=== PATIENT | female | born 1935 | race Caucasian/White ===

== ENCOUNTER 2017-02-16 09:01 | Inpatient (IN) | payer BC, OTHER ==
[~2017-02-16] VITALS: Ht 167.6 cm; Wt 54.3 kg
[2017-02-16 09:42] LABS: Basophils # (auto) 0 uL; CONDITION Y; Eosinophils # (auto) 0 uL; Eosinophils % (auto) 0.1 % (0.0-7.0); Hematocrit 31.4 % (36.0-46.0); Hemoglobin 10.5 g/dL (12.2-16.2); Lymphocytes # (auto) 0.4 uL; Lymphocytes % (auto) 2.5 % (10.0-50.0); Mean Corpuscular Hemoglobin 29.7 pg (28.0-32.0); Mean Corpuscular Hgb Conc. 33.4 g/dL (32.0-36.0); Mean Corpuscular Volume 88.8 fL (80.0-100.0); Mean Platelet Volume 8.3 fL (7.4-10.4); Monocytes # (auto) 1.1 uL; Neutrophils # (auto) 14.6 uL; Neutrophils % (auto) 90.4 % (37.0-80.0); Platelet Count (auto) 311 10^3/uL (140-450); Red Cell Distribution Width 16.3 % (11.6-16.0); White Blood Cell 16.1 10^3/uL (4.4-10.8)
[2017-02-16 09:57] LABS: Albumin 2.5 g/dL (3.4-5.0); Alkaline Phosphatase 86 U/L (45-117); Anion Gap 14 (5-15); Aspartate Aminotransferase 21 U/L (15-37); BUN/Creatinine Ratio 24.2; Bilirubin, Total 0.5 mg/dL (0.2-1.0); Blood Urea Nitrogen 52 mg/dL (7-18); Calcium 8.5 mg/dL (8.5-10.1); Carbon Dioxide 12 mmol/L (21-32); Chloride 110 mmol/L (98-107); GFR African American 28 mL/min; GFR Non-African American 24 mL/min; Glucose 127 mg/dL (74-106); Magnesium 2.4 mg/dL (1.6-2.6); Potassium 3.6 mmol/L (3.5-5.1); Sodium 136 mmol/L (136-145); Total Protein 7.4 g/dL (6.4-8.2)
[2017-02-16] MEDS ORDERED: SODIUM CHLORIDE 0.9% 1,000 ML IV ONE (10:35)
[2017-02-16 11:26] LABS: Urine Bilirubin Negative (Negative); Urine Color Yellow (Yellow); Urine Glucose Normal (Normal); Urine Ketone TRACE (Negative); Urine Mucus FEW (None Seen); Urine RBC 2 /hpf (0 - 4); Urine Squamous Epithelial Cell FEW /hpf (<5); Urine Urobilinogen Normal (Negative); Urine WBC Clumps PRESENT /hpf (None Seen); Urine pH 5.5 (5.0-8.0)
[2017-02-16 11:27] LABS: Urine Blood 1+ /uL (Negative); Urine Nitrite POSITIVE (Negative)
[2017-02-16] MEDS ORDERED: cefTRIAXone 1GM/50ML D5W 50 ML IV ONE ×2 (13:00→13:15)
[2017-02-16] MEDS ORDERED: cloNIDine HCL 0.1 MG TAB PO PRN (15:15)
[2017-02-16] MEDS ORDERED: VANCOMYCIN PER PHARMACY 0 MG IV SCH (15:15)
[2017-02-16] MEDS ORDERED: HYDROcodone-ACET 5/325MG TAB PO PRN (15:30)
[2017-02-16] MEDS ORDERED: ACETAMINOPHEN 325 MG TAB PO PRN (15:30)
[2017-02-16] MEDS ORDERED: TEMAZEPAM 15 MG CAP PO PRN (15:30)
[2017-02-16] MEDS ORDERED: ONDANSETRON HCL 4 MG/2 ML VIAL IV PRN (15:30)
[2017-02-16] MEDS ORDERED: LABETALOL HCL 5 MG/ML ML 20ML VIAL IV PRN (15:30)
[2017-02-16] MEDS ORDERED: DOCUSATE SOD 100 MG CAP PO PRN (15:30)
[2017-02-16] MEDS ORDERED: DEXTROSE (50%) 50ML SYRG IV PRN (15:30)
[2017-02-16] MEDS ORDERED: MORPHINE SULF INJ 2 MG/ML SYRINGE 1ML IV PRN (15:30)
[2017-02-16] MEDS ORDERED: ASPirin-EC 81 mg tab PO ONE (15:30)
[2017-02-16] MEDS: SODIUM CHLORIDE 0.9% 1,000 ML IV SCH (15:54)
[2017-02-16] MEDS ORDERED: VANCOMYCIN 1GM/250ML D5W 250 ML IV ONE (16:00)
[2017-02-16] MEDS ORDERED: VANCOMYCIN 750 MG in D5W 5% 250 ML IV ONE (16:15)
[2017-02-16] MEDS: ENOXAPARIN SOD 30 MG/0.3 ML SYRINGE SC SCH (16:45)
[2017-02-16] MEDS: FAMOTIDINE 20 MG TAB PO SCH (16:45)
[2017-02-16] MEDS: ACCU-CHEK COMFORT CURVE STRIP VI SCH ×2 (17:39→22:58)
[2017-02-16] MEDS: InsuLIN REG 1unit/0.01ml Soln (100units/ml) SC SCH ×2 (17:39→22:00)
[2017-02-16] MEDS: Boost Glucose Control 8 Ounces PO SCH (18:14)
[2017-02-16 20:15] VITALS: BP 158/84
[2017-02-16 22:00] VITALS: BP 158/84
[2017-02-16] MEDS: ATORVASTATIN 20 MG TAB PO SCH (22:18)
[2017-02-17 05:00] VITALS: BP 125/75
[2017-02-17 05:40] LABS: CONDITION Y; Hematocrit 30.4 % (36.0-46.0); Hemoglobin 10.2 g/dL (12.2-16.2); Mean Corpuscular Hemoglobin 30.2 pg (28.0-32.0); Mean Corpuscular Hgb Conc. 33.7 g/dL (32.0-36.0); Mean Corpuscular Volume 89.5 fL (80.0-100.0); Mean Platelet Volume 9.1 fL (7.4-10.4); Platelet Count (auto) 272 10^3/uL (140-450); Red Cell Distribution Width 16.2 % (11.6-16.0); SUSPECT SEE PRINTOUT
[2017-02-17 05:51] LABS: Albumin 2.1 g/dL (3.4-5.0); Calcium 8.1 mg/dL (8.5-10.1); Potassium 3.7 mmol/L (3.5-5.1)
[2017-02-17 05:52] LABS: BUN/Creatinine Ratio 25.1
[2017-02-17] MEDS: InsuLIN REG 1unit/0.01ml Soln (100units/ml) SC SCH ×4 (06:01→21:57)
[2017-02-17] MEDS: ACCU-CHEK COMFORT CURVE STRIP VI SCH ×4 (06:01→21:57)
[2017-02-17 06:06] LABS: Bilirubin, Total 0.4 mg/dL (0.2-1.0); Total Protein 6.6 g/dL (6.4-8.2)
[2017-02-17 06:17] LABS: Metamyelocytes % 0; Myelocytes % 0; Promyelocytes % 0; Reactive Lymphocytes 0
[2017-02-17 08:36] LABS: Platelet Estimate Adequate
[2017-02-17 08:37] LABS: Burr Cells FEW; Ovalocytes FEW
[2017-02-17 09:00] VITALS: BP 128/78
[2017-02-17] MEDS: Boost Glucose Control 8 Ounces PO SCH ×3 (10:20→18:19)
[2017-02-17] MEDS: MULTIPLE VITAMIN TAB PO SCH (10:21)
[2017-02-17] MEDS: cefTRIAXone 1GM/50ML D5W 50 ML IV SCH (10:21)
[2017-02-17] MEDS: ASPirin-EC 81 mg tab PO SCH (10:21)
[2017-02-17] MEDS: SODIUM CHLORIDE 0.9% 1,000 ML IV SCH ×2 (10:21→21:58)
[2017-02-17] MEDS: FAMOTIDINE 20 MG TAB PO SCH (10:21)
[2017-02-17 13:00] VITALS: BP 115/65
[2017-02-17] MEDS ORDERED: VANCOMYCIN 750 MG in D5W 5% 250 ML IV ONE (16:00)
[2017-02-17 16:22] VITALS: BP 126/74
[2017-02-17] MEDS: ENOXAPARIN SOD 30 MG/0.3 ML SYRINGE SC SCH (16:42)
[2017-02-17 17:00] VITALS: BP 140/100
[2017-02-17] MEDS: ATORVASTATIN 20 MG TAB PO SCH (21:58)
[2017-02-17 22:00] VITALS: BP 119/81
[2017-02-18 05:00] VITALS: BP 128/79
[2017-02-18] MEDS: ACCU-CHEK COMFORT CURVE STRIP VI SCH ×2 (06:31→11:30)
[2017-02-18] MEDS: InsuLIN REG 1unit/0.01ml Soln (100units/ml) SC SCH ×2 (06:31→11:30)
[2017-02-18 07:02] LABS: Basophils # (auto) 0 uL; CONDITION Y; DEFINITIVE SEE PRINTOUT; Eosinophils # (auto) 0.2 uL; Eosinophils % (auto) 1.9 % (0.0-7.0); Hematocrit 35.2 % (36.0-46.0); Hemoglobin 11.8 g/dL (12.2-16.2); Lymphocytes # (auto) 0.9 uL; Lymphocytes % (auto) 7.4 % (10.0-50.0); Mean Corpuscular Hemoglobin 30.1 pg (28.0-32.0); Mean Corpuscular Hgb Conc. 33.6 g/dL (32.0-36.0); Mean Corpuscular Volume 89.6 fL (80.0-100.0); Mean Platelet Volume 9.1 fL (7.4-10.4); Monocytes # (auto) 1.8 uL; Monocytes % (auto) 13.8 % (0.0-12.0); Neutrophils # (auto) 9.8 uL; Neutrophils % (auto) 76.9 % (37.0-80.0); Platelet Count (auto) 281 10^3/uL (140-450); Red Cell Distribution Width 16.7 % (11.6-16.0); White Blood Cell 12.8 10^3/uL (4.4-10.8)
[2017-02-18 07:45] LABS: Albumin 2.1 g/dL (3.4-5.0); BUN/Creatinine Ratio 28.8; Calcium 7.8 mg/dL (8.5-10.1); Potassium 3.5 mmol/L (3.5-5.1)
[2017-02-18 07:47] LABS: Bilirubin, Total 0.3 mg/dL (0.2-1.0); Total Protein 6.3 g/dL (6.4-8.2)
[2017-02-18] MEDS: cefTRIAXone 1GM/50ML D5W 50 ML IV SCH (09:35)
[2017-02-18] MEDS: Boost Glucose Control 8 Ounces PO SCH ×3 (09:35→18:27)
[2017-02-18] MEDS: ASPirin-EC 81 mg tab PO SCH (09:36)
[2017-02-18] MEDS: MULTIPLE VITAMIN TAB PO SCH (09:36)
[2017-02-18] MEDS: FAMOTIDINE 20 MG TAB PO SCH (09:36)
[2017-02-18 11:23] VITALS: BP 115/75
[2017-02-18 15:53] VITALS: BP 118/78
[2017-02-18] MEDS: ENOXAPARIN SOD 30 MG/0.3 ML SYRINGE SC SCH (16:00)
[2017-02-18] MEDS: ATORVASTATIN 20 MG TAB PO SCH (21:56)
[2017-02-18 22:37] VITALS: BP 140/75
[2017-02-19 05:30] VITALS: BP 145/72
[2017-02-19 06:47] LABS: Basophils # (auto) 0 uL; Basophils % (auto) 0.1 % (0.0-2.0); CONDITION Y; Eosinophils # (auto) 0.2 uL; Eosinophils % (auto) 1.7 % (0.0-7.0); Hematocrit 29.2 % (36.0-46.0); Hemoglobin 9.9 g/dL (12.2-16.2); Lymphocytes # (auto) 0.7 uL; Lymphocytes % (auto) 7.3 % (10.0-50.0); Mean Corpuscular Hemoglobin 30.3 pg (28.0-32.0); Mean Corpuscular Hgb Conc. 34.1 g/dL (32.0-36.0); Mean Corpuscular Volume 88.9 fL (80.0-100.0); Neutrophils # (auto) 7.8 uL; Neutrophils % (auto) 80.9 % (37.0-80.0); Platelet Count (auto) 271 10^3/uL (140-450); Red Cell Distribution Width 16.2 % (11.6-16.0); White Blood Cell 9.7 10^3/uL (4.4-10.8)
[2017-02-19 08:05] LABS: BUN/Creatinine Ratio 20.1; Potassium 3.6 mmol/L (3.5-5.1)
[2017-02-19 08:06] LABS: Calcium 7.6 mg/dL (8.5-10.1)
[2017-02-19 09:00] VITALS: BP 133/81
[2017-02-19] MEDS: FAMOTIDINE 20 MG TAB PO SCH (09:33)
[2017-02-19] MEDS: cefTRIAXone 1GM/50ML D5W 50 ML IV SCH (09:33)
[2017-02-19] MEDS: ASPirin-EC 81 mg tab PO SCH (09:33)
[2017-02-19] MEDS: Boost Glucose Control 8 Ounces PO SCH ×2 (09:33→13:21)
[2017-02-19] MEDS: MULTIPLE VITAMIN TAB PO SCH (09:33)
[2017-02-19 13:20] VITALS: BP 129/61
[2017-02-19] MEDS ORDERED: LEVOFLOXACIN 250 MG TAB PO ONE (14:45)
[2017-02-19] MEDS: ENOXAPARIN SOD 30 MG/0.3 ML SYRINGE SC SCH (16:00)
[2017-02-20] MEDS ORDERED: LEVOFLOXACIN 250 MG TAB PO SCH (10:00)
== END 2017-02-19 16:27 | disposition home or self-care (01) | DRG 871 ==
LOC: EDBD 09:01 → ER 09:01 → OVERFLOW 09:02 → CENTRAL 20:10
PROVIDERS: ADMIT Internal Medicine; ATTEND Internal Medicine
DX: A41.9 Sepsis, unspecified organism (principal); G92 Toxic encephalopathy; E43 Unspecified severe protein-calorie malnutrition; N39.0 Urinary tract infection, site not specified; N18.4 Chronic kidney disease, stage 4 (severe); N17.9 Acute kidney failure, unspecified; Z68.1 Body mass index [BMI] 19.9 or less, adult; E11.21 Type 2 diabetes mellitus with diabetic nephropathy; E03.9 Hypothyroidism, unspecified; D63.8 Anemia in other chronic diseases classified elsewhere; I25.10 Atherosclerotic heart disease of native coronary artery without angina pectoris; Z95.1 Presence of aortocoronary bypass graft; E05.90 Thyrotoxicosis, unspecified without thyrotoxic crisis or storm; E11.22 Type 2 diabetes mellitus with diabetic chronic kidney disease; E11.65 Type 2 diabetes mellitus with hyperglycemia; E86.0 Dehydration; I12.9 Hypertensive chronic kidney disease with stage 1 through stage 4 chronic kidney disease, or unspecified chronic kidney disease; M32.9 Systemic lupus erythematosus, unspecified; Z90.710 Acquired absence of both cervix and uterus; Z88.2 Allergy status to sulfonamides
CPT/HCPCS: 36415; 70450; 71020; 80048; 80053; 80202; 80320; 81001; 82962; 83036; 83605; 83690; 83735; 84443; 84484; 85007; 85025; 85027; 87040; 87086; 87088; 87186; 92610; 93005; 93306; 93886; 94761; 96361; 96365; 96367; J0696; J7060

== ENCOUNTER 2021-02-17 11:36 | Inpatient (IN) | payer BC ==
[~2021-02-17] VITALS: Ht 167.6 cm; Wt 51.4 kg
[2021-02-17] MEDS ORDERED: ONDANSETRON HCL 4 MG/2 ML VIAL IV ONE (12:15)
[2021-02-17] MEDS ORDERED: SODIUM CHLORIDE 0.9% 1,000 ML IVB ONE (12:15)
[2021-02-17 13:40] LABS: Basophils # (auto) 0 10 ^3/uL (0-0.2); Basophils % (auto) 0.2 % (0.0-2.0); Eosinophils # (auto) 0 10 ^3/uL (0-0.8); Eosinophils % (auto) 0.3 % (0.0-7.0); Hematocrit 30.5 % (36.0-46.0); Hemoglobin 10.4 g/dL (12.2-16.2); Lymphocytes # (auto) 0.6 10 ^3/uL (0.4-5.4); Mean Corpuscular Hemoglobin 29.4 pg (28.0-32.0); Mean Corpuscular Hgb Conc. 34.1 g/dL (32.0-36.0); Mean Corpuscular Volume 86.4 fL (80.0-100.0); Monocytes # (auto) 0.2 10 ^3/uL (0-1.3); Monocytes % (auto) 1.7 % (0.0-12.0); Neutrophils # (auto) 11.3 10 ^3/uL (1.6-8.6); Neutrophils % (auto) 92.8 % (37.0-80.0); Red Blood Cells 3.53 10^6/uL (4.0-5.20); Red Cell Distribution Width 15.9 % (11.8-14.3); White Blood Cell 12.1 10^3/uL (4.4-10.8)
[2021-02-17 13:48] LABS: Albumin 2.6 g/dL (3.4-5.0); Calcium 7.9 mg/dL (8.5-10.1); Magnesium 2.3 mg/dL (1.6-2.6); Potassium 3.6 mmol/L (3.5-5.1)
[2021-02-17 13:51] LABS: BUN/Creatinine Ratio 15.8; Bilirubin, Total 0.6 mg/dL (0.2-1.0); Total Protein 7.1 g/dL (6.4-8.2)
[2021-02-17] MEDS ORDERED: metroNIDAZOLE 500MG/100ML 100 ML IV ONE (15:30)
[2021-02-17] MEDS ORDERED: NITROGLYCERIN 0.4 MG SL TAB SL PRN (15:45)
[2021-02-17] MEDS ORDERED: MORPHINE SULF INJ 2 MG/ML SYRINGE 1ML IV PRN (15:45)
[2021-02-17] MEDS ORDERED: ACETAMINOPHEN 500 MG TAB PO PRN (17:30)
[2021-02-17] MEDS ORDERED: ONDANSETRON HCL 4 MG/2 ML VIAL IV PRN (17:30)
[2021-02-17] MEDS ORDERED: traMADol HCL 50 MG TAB PO PRN (17:30)
[2021-02-17] MEDS ORDERED: cefTRIAXone 1GM/50ML D5W 50 ML IV ONE (17:30)
[2021-02-17 18:21] VITALS: BP 130/69
[2021-02-17] MEDS: SODIUM CHLORIDE 0.9% 1,000 ML IV SCH (21:30)
[2021-02-17] MEDS: metroNIDAZOLE 500MG/100ML 100 ML IV SCH (21:31)
[2021-02-17 21:49] VITALS: BP 115/61
[2021-02-18] MEDS: SODIUM CHLORIDE 0.9% 1,000 ML IV SCH ×3 (03:30→23:30)
[2021-02-18 05:30] VITALS: BP 120/71
[2021-02-18] MEDS: metroNIDAZOLE 500MG/100ML 100 ML IV SCH ×3 (05:41→21:34)
[2021-02-18 07:00] LABS: Basophils # (auto) 0 10 ^3/uL (0-0.2); Eosinophils # (auto) 0 10 ^3/uL (0-0.8); Hemoglobin 8.4 g/dL (12.2-16.2); Lymphocytes % (auto) 15.2 % (10.0-50.0); Monocytes # (auto) 0.7 10 ^3/uL (0-1.3)
[2021-02-18 07:01] LABS: Basophils % (auto) 0.6 % (0.0-2.0); Eosinophils % (auto) 0.3 % (0.0-7.0); Hematocrit 23.6 % (36.0-46.0); Mean Corpuscular Hemoglobin 30.1 pg (28.0-32.0); Mean Corpuscular Hgb Conc. 35.4 g/dL (32.0-36.0); Mean Corpuscular Volume 85.1 fL (80.0-100.0); Monocytes % (auto) 10.9 % (0.0-12.0); Neutrophils # (auto) 4.8 10 ^3/uL (1.6-8.6); Nucleated Red Blood Cells % 0.1 %; Red Blood Cells 2.78 10^6/uL (4.0-5.20); Red Cell Distribution Width 15.6 % (11.8-14.3); White Blood Cell 6.6 10^3/uL (4.4-10.8)
[2021-02-18 07:07] LABS: Albumin 2.3 g/dL (3.4-5.0); Calcium 7.4 mg/dL (8.5-10.1); Potassium 3.6 mmol/L (3.5-5.1)
[2021-02-18 07:09] LABS: BUN/Creatinine Ratio 16.6
[2021-02-18 07:16] LABS: Bilirubin, Total 0.3 mg/dL (0.2-1.0); Total Protein 5.7 g/dL (6.4-8.2)
[2021-02-18 08:05] VITALS: BP 125/69
[2021-02-18 08:55] VITALS: BP 125/69
[2021-02-18] MEDS: cefTRIAXone 1GM/50ML D5W 50 ML IV SCH (10:47)
[2021-02-18] MEDS: PANTOPRAZOLE 40 MG TAB PO SCH (10:47)
[2021-02-18] MEDS: ENOXAPARIN SOD 30 MG/0.3 ML SYRINGE SC SCH (10:47)
[2021-02-18 12:11] VITALS: BP 122/69
[2021-02-18] MEDS: MORPHINE SULF INJ 2 MG/ML SYRINGE 1ML IV PRN (12:34)
[2021-02-18 13:28] LABS: Urine Bacteria FEW /hpf (None Seen); Urine Blood Negative /uL (Negative); Urine Hyaline Cast FEW /lpf (0 - 2); Urine Mucus FEW (None Seen); Urine Specific Gravity 1.013 (1.001-1.035); Urine WBC 3 /hpf (0 - 5)
[2021-02-18] MEDS ORDERED: FLEET ENEMA(ADULT) 135 ML PR ONE (14:30)
[2021-02-18] MEDS ORDERED: MILK OF MAGNESIA 30ML SUSP PO ONE (14:30)
[2021-02-18 15:30] VITALS: BP 130/60
[2021-02-18 22:00] VITALS: BP 138/82
[2021-02-19] MEDS: MORPHINE SULF INJ 2 MG/ML SYRINGE 1ML IV PRN (01:01)
[2021-02-19] MEDS ORDERED: [UNRECOGNIZED DRUG - CODE] PO (02:20)
[2021-02-19] MEDS ORDERED: FAMO-12 PO (02:20)
[2021-02-19] MEDS ORDERED: METO-159 PO (02:20)
[2021-02-19] MEDS ORDERED: CILO100T PO (02:20)
[2021-02-19] MEDS ORDERED: NIFE1TAB30 PO (02:20)
[2021-02-19] MEDS ORDERED: CHOL10006 PO (02:20)
[2021-02-19] MEDS ORDERED: DICY10CA12 PO (02:20)
[2021-02-19] MEDS ORDERED: CLON0.1T PO (02:20)
[2021-02-19] MEDS ORDERED: FURO20TA3 PO (02:20)
[2021-02-19] MEDS ORDERED: LEVO25TA6 PO (02:20)
[2021-02-19] MEDS ORDERED: LISI20TA28 PO (02:20)
[2021-02-19] MEDS ORDERED: ACET300T4 PO (02:20)
[2021-02-19] MEDS ORDERED: CEPH250C28 PO (02:20)
[2021-02-19 05:00] VITALS: BP 148/82
[2021-02-19] MEDS: metroNIDAZOLE 500MG/100ML 100 ML IV SCH (06:36)
[2021-02-19] MEDS: cefTRIAXone 1GM/50ML D5W 50 ML IV SCH (08:35)
[2021-02-19] MEDS: SODIUM CHLORIDE 0.9% 1,000 ML IV SCH (08:35)
[2021-02-19 08:39] VITALS: BP_SYST 148; BP_SYST 150; BP_DIAS 78; BP_DIAS 82
[2021-02-19] MEDS: ENOXAPARIN SOD 30 MG/0.3 ML SYRINGE SC SCH (09:25)
[2021-02-19] MEDS: PANTOPRAZOLE 40 MG TAB PO SCH (09:25)
[2021-02-19 12:23] VITALS: BP 149/88
== END 2021-02-19 13:25 | disposition home or self-care (01) | DRG 392 ==
LOC: EDBD 11:36 → ER 11:36 → TELE 15:40 → TELE-EAST 18:08
PROVIDERS: ADMIT Internal Medicine; ATTEND Family Medicine
DX: K59.09 Other constipation (principal); N18.4 Chronic kidney disease, stage 4 (severe); N39.0 Urinary tract infection, site not specified; E44.0 Moderate protein-calorie malnutrition; N83.202 Unspecified ovarian cyst, left side; N28.1 Cyst of kidney, acquired; I25.10 Atherosclerotic heart disease of native coronary artery without angina pectoris; I71.4 Abdominal aortic aneurysm, without rupture; D50.9 Iron deficiency anemia, unspecified; M32.9 Systemic lupus erythematosus, unspecified; E03.9 Hypothyroidism, unspecified; I12.9 Hypertensive chronic kidney disease with stage 1 through stage 4 chronic kidney disease, or unspecified chronic kidney disease; K52.9 Noninfective gastroenteritis and colitis, unspecified; Z20.822 Contact with and (suspected) exposure to COVID-19; Z88.2 Allergy status to sulfonamides; Z90.710 Acquired absence of both cervix and uterus; Z95.1 Presence of aortocoronary bypass graft
CPT/HCPCS: 36415; 71045; 74176; 76775; 76856; 80053; 81001; 82270; 82378; 83690; 83735; 85025; 85652; 86304; 87426; 87493; 93005; 96365; 96367; 96375; G0378; J0696; J2405; J3490

== ENCOUNTER 2021-10-28 17:07 | Inpatient (IN) | payer BC, OTHER ==
[~2021-10-28] VITALS: Ht 167.6 cm; Wt 53.6 kg
[~2021-10-28 17:07] MED LIST: ACET300T4 PO; CEPH250C28 PO; CHOL10006 PO; CILO100T PO; CLON0.1T PO; DICY10CA12 PO; FAMO-12 PO; FURO20TA3 PO; LEVO25TA6 PO; LISI20TA28 PO; METO-159 PO; NIFE1TAB30 PO; [UNRECOGNIZED DRUG - CODE] PO
[2021-10-28] MEDS ORDERED: ONDANSETRON HCL 4 MG/2 ML VIAL IV ONE (18:15)
[2021-10-28] MEDS ORDERED: MORPHINE SULFATE 4 MG/ML SYR/VIAL IV ONE (18:15)
[2021-10-28 18:16] LABS: Basophils # (auto) 0.1 10 ^3/uL (0-0.2); Basophils % (auto) 0.8 % (0.0-2.0); Eosinophils # (auto) 0.1 10 ^3/uL (0-0.8); Eosinophils % (auto) 1.2 % (0.0-7.0); Hematocrit 29.1 % (36.0-46.0); Hemoglobin 10.1 g/dL (12.2-16.2); Lymphocytes # (auto) 1.1 10 ^3/uL (0.4-5.4); Lymphocytes % (auto) 14.3 % (10.0-50.0); Mean Corpuscular Hemoglobin 30.8 pg (28.0-32.0); Mean Corpuscular Hgb Conc. 34.6 g/dL (32.0-36.0); Mean Corpuscular Volume 89.1 fL (80.0-100.0); Monocytes # (auto) 0.9 10 ^3/uL (0-1.3); Monocytes % (auto) 11.8 % (0.0-12.0); Neutrophils # (auto) 5.5 10 ^3/uL (1.6-8.6); Neutrophils % (auto) 71.9 % (37.0-80.0); Red Blood Cells 3.27 10^6/uL (4.0-5.20); Red Cell Distribution Width 14.9 % (11.8-14.3); White Blood Cell 7.7 10^3/uL (4.4-10.8)
[2021-10-28 18:34] LABS: Albumin 3.1 g/dL (3.4-5.0); Calcium 8.3 mg/dL (8.5-10.1); Magnesium 2.2 mg/dL (1.6-2.6); Potassium 4.5 mmol/L (3.5-5.1)
[2021-10-28 18:36] LABS: BUN/Creatinine Ratio 15.5
[2021-10-28 18:39] LABS: Bilirubin, Total 0.4 mg/dL (0.2-1.0)
[2021-10-28] MEDS ORDERED: ONDANSETRON HCL 4 MG/2 ML VIAL IV PRN (21:30)
[2021-10-28] MEDS ORDERED: NITROGLYCERIN 0.4 MG SL TAB SL PRN (21:30)
[2021-10-28] MEDS ORDERED: MORPHINE SULFATE INJECTION 2 MG/ML SYRG IV PRN ×2 (21:30)
[2021-10-28] MEDS ORDERED: SODIUM CHLORIDE 0.9% 1,000 ML IV ONE (21:30)
[2021-10-28 23:22] LABS: INR 1.07 (0.9-1.15)
[2021-10-29] VITALS (40 sets, daily range): BP systolic 114–166; BP diastolic 57–99
[2021-10-29] MEDS: hydrALAZINE HCL 20 MG/ML VL IV PRN ×2 (04:21→13:09)
[2021-10-29 06:22] LABS: Basophils # (auto) 0 10 ^3/uL (0-0.2); Basophils % (auto) 0.5 % (0.0-2.0); Eosinophils # (auto) 0 10 ^3/uL (0-0.8); Eosinophils % (auto) 0.2 % (0.0-7.0); Hematocrit 28.7 % (36.0-46.0); Hemoglobin 9.8 g/dL (12.2-16.2); Lymphocytes % (auto) 16.4 % (10.0-50.0); Mean Corpuscular Hemoglobin 30.3 pg (28.0-32.0); Mean Corpuscular Hgb Conc. 34.1 g/dL (32.0-36.0); Mean Corpuscular Volume 88.7 fL (80.0-100.0); Monocytes # (auto) 0.9 10 ^3/uL (0-1.3); Monocytes % (auto) 14.8 % (0.0-12.0); Neutrophils # (auto) 4.2 10 ^3/uL (1.6-8.6); Neutrophils % (auto) 68.1 % (37.0-80.0); Nucleated Red Blood Cells % 0.1 %; Red Blood Cells 3.24 10^6/uL (4.0-5.20); Red Cell Distribution Width 15.2 % (11.8-14.3); White Blood Cell 6.2 10^3/uL (4.4-10.8)
[2021-10-29 06:37] LABS: Albumin 2.9 g/dL (3.4-5.0); BUN/Creatinine Ratio 15.4; Calcium 8.6 mg/dL (8.5-10.1); Potassium 4.4 mmol/L (3.5-5.1)
[2021-10-29 06:40] LABS: Bilirubin, Total 0.3 mg/dL (0.2-1.0); Total Protein 7.3 g/dL (6.4-8.2)
[2021-10-29] MEDS ORDERED: ASPirin-EC 325mg tab PO SCH (10:00)
[2021-10-29] MEDS ORDERED: ENOXAPARIN SOD 40 MG/0.4 ML SYRINGE SC SCH (10:00)
[2021-10-29] MEDS ORDERED: RANO500T2 PO (10:04)
[2021-10-29] MEDS ORDERED: ASPI81CH74 PO (10:04)
[2021-10-29] MEDS ORDERED: RIV20T PO (10:04)
[2021-10-29] MEDS ORDERED: SODIUM CHLORIDE 0.9% 1,000 ML IV SCH (11:00)
[2021-10-29] MEDS ORDERED: IOHEXOL 350 MG/ML 100ML IJ ONE (11:18)
[2021-10-29] MEDS ORDERED: amLODIPine BESYLATE 5 MG TAB PO ONE (12:45)
[2021-10-29] MEDS: SODIUM BICARBONATE 50ML VIAL 50 ML in SOD CHL 0.45% 1,000 ML IV SCH (19:34)
[2021-10-30] VITALS (68 sets, daily range): BP systolic 115–168; BP diastolic 65–103
[2021-10-30] MEDS ORDERED: SODIUM BICARBONATE 8.4 % INJ 50ML VIAL IV ONE ×2 (04:36→18:28)
[2021-10-30 04:37] LABS: Potassium 4.1 mmol/L (3.5-5.1)
[2021-10-30 04:42] LABS: Albumin 2.8 g/dL (3.4-5.0); Calcium 8.1 mg/dL (8.5-10.1)
[2021-10-30 04:45] LABS: Bilirubin, Total 0.2 mg/dL (0.2-1.0); Total Protein 7.1 g/dL (6.4-8.2)
[2021-10-30] MEDS: SODIUM BICARBONATE 50ML VIAL 50 ML in SOD CHL 0.45% 1,000 ML IV SCH ×2 (04:58→18:17)
[2021-10-30] MEDS ORDERED: ASPirin 325 MG TAB PO SCH (10:00)
[2021-10-30] MEDS: amLODIPine BESYLATE 5 MG TAB PO SCH (10:00)
[2021-10-30] MEDS ORDERED: ENOXAPARIN SOD 40 MG/0.4 ML SYRINGE SC SCH (10:00)
[2021-10-30] MEDS: METOPROLOL TARTRATE 1MG/1ML-5ML VIAL IV SCH ×3 (12:28→18:18)
[2021-10-30] MEDS: METOPROLOL TARTRATE 50 MG TAB PO SCH ×2 (12:29→22:00)
[2021-10-30 13:36] LABS: Protein, Urine 74.3 mg/dL (0.0-11.9)
[2021-10-30 19:45] LABS: Urine Amorphous Crystal FEW /hpf (None Seen); Urine Bacteria MOD /hpf (None Seen); Urine Blood TRACE /uL (Negative); Urine Mucus FEW (None Seen); Urine Specific Gravity 1.028 (1.001-1.035); Urine WBC 12 /hpf (0 - 5)
[2021-10-31] VITALS (11 sets, daily range): BP systolic 137–178; BP diastolic 74–115
[2021-10-31 04:30] LABS: Albumin 2.4 g/dL (3.4-5.0); Calcium 7.7 mg/dL (8.5-10.1)
[2021-10-31 04:32] LABS: BUN/Creatinine Ratio 18.7
[2021-10-31 04:35] LABS: Bilirubin, Total 0.4 mg/dL (0.2-1.0); Total Protein 6.5 g/dL (6.4-8.2)
[2021-10-31] MEDS: SODIUM BICARBONATE 50ML VIAL 50 ML in SOD CHL 0.45% 1,000 ML IV SCH (05:54)
[2021-10-31] MEDS: METOPROLOL TARTRATE 1MG/1ML-5ML VIAL IV SCH ×2 (06:54)
[2021-10-31] MEDS: amLODIPine BESYLATE 5 MG TAB PO SCH (09:13)
[2021-10-31] MEDS: METOPROLOL TARTRATE 50 MG TAB PO SCH (09:13)
[2021-10-31] MEDS: hydrALAZINE HCL 20 MG/ML VL IV PRN (13:42)
== END 2021-10-31 14:20 | disposition hospice, home (50) | DRG 299 ==
LOC: EDBD 17:07 → ER 17:07 → TELE 21:18 → OBSVTOIN 21:18 → TELE-WESTW 10-29 02:50 → ICU WEST 10-29 14:34
PROVIDERS: ADMIT Internal Medicine; ATTEND Internal Medicine
PROC: 02HV33Z Insertion of Infusion Device into Superior Vena Cava, Percutaneous Approach (ICD-10-PCS; principal; 2021-10-29)
PROC: B548ZZA Ultrasonography of Superior Vena Cava, Guidance (ICD-10-PCS; 2021-10-29)
DX: I71.01 Dissection of thoracic aorta (principal); N17.0 Acute kidney failure with tubular necrosis; N18.4 Chronic kidney disease, stage 4 (severe); E87.2 Acidosis; I25.10 Atherosclerotic heart disease of native coronary artery without angina pectoris; Z66 Do not resuscitate; M32.9 Systemic lupus erythematosus, unspecified; I48.91 Unspecified atrial fibrillation; E78.5 Hyperlipidemia, unspecified; Z20.822 Contact with and (suspected) exposure to COVID-19; I12.9 Hypertensive chronic kidney disease with stage 1 through stage 4 chronic kidney disease, or unspecified chronic kidney disease; D63.1 Anemia in chronic kidney disease; E55.9 Vitamin D deficiency, unspecified; Z88.2 Allergy status to sulfonamides; Z95.1 Presence of aortocoronary bypass graft
CPT/HCPCS: 36415; 71045; 71275; 76775; 80053; 81001; 82306; 82570; 83735; 83880; 83970; 84100; 84156; 84300; 84484; 85025; 85610; 86803; 87081; 93005; 93306; 96361; 96374; 96375; G0378; J2405